=== PATIENT | female | born 1990 ===

== ENCOUNTER 2023-02-20 22:21 | Emergency (ER) | payer MEDICAID, SELFPAY ==
--- NOTE | ~2023-02-20 | CT_ITS ---
EXAMINATION: CT HEAD WITHOUT CONTRAST CLINICAL INFORMATION: Headache and dizziness. COMPARISON: None available. TECHNIQUE: Contiguous axial imaging was performed from the skull base to vertex without intravenous administration of contrast. This CT examination was performed using dose optimization techniques as appropriate, variously including the following: *Automated exposure control *Adjustment of mA and/or kV according to patient size (this includes techniques or standardized protocols for targeted exams where dose is matched to indication/reason for exam; i.e. extremities or head) *Use of iterative reconstruction technique DLP: 661 mGy-cm FINDINGS: There is no evidence of acute intracranial hemorrhage or territorial infarction. No abnormal mass effect or midline shift is seen. Herrera to white matter differentiation is well preserved. No extra-axial fluid collections are identified. No hydrocephalus. No significant volume loss. There is no abnormal attenuation within the brain parenchyma. No acute osseous or soft tissue abnormality. Scattered secretions throughout the ethmoid air cells. Mastoid air cells are clear. CT/CT head/brain wo IV con IMPRESSION: No acute intracranial pathology.
[2023-02-20 22:22] VITALS: BP 98/63; PULSE 67; RESP 18; TEMP 36.1; O2SAT 98; BMI 33.6
[2023-02-21] MEDS: Acetaminophen 325 MG TABLET 650 MG PO (00:13)
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
[2023-02-21 00:25] VITALS: BP 98/44; PULSE 61; RESP 14; TEMP 36.6; O2SAT 98
--- NOTE | 2023-02-21 00:59 | PC.NURSE ---
pt provided with discharge packet pt verbalized understanding of discharge plan pt verbalized understanding of discharge plan.
== END 2023-02-21 01:02 | disposition home or self-care (01) ==
PROVIDERS: Emergency Provider Student in an Organized Health Care Education/Training Program
DX: S09.90XA Unspecified injury of head, initial encounter (principal); R51.9 Headache, unspecified; Y29.XXXA Contact with blunt object, undetermined intent, initial encounter; Y93.9 Activity, unspecified; Y92.512 Supermarket, store or market as the place of occurrence of the external cause; Y99.9 Unspecified external cause status
CPT/HCPCS: 70450; 99284

== ENCOUNTER 2023-06-15 12:09 | Emergency (ER) | payer MEDICAID, SELFPAY ==
[2023-06-15 12:23] VITALS: BP 151/96; PULSE 91; RESP 16; TEMP 36.9; O2SAT 100; BMI 32.8
--- NOTE | 2023-06-15 12:28 | ED.GENADULT ---
HPI - General Adult General Chief complaint: Skin/Abscess/Foreign Body Stated complaint: Cyst L foot Time Seen by Provider: 06/15/23 12:43 Source: patient and RN notes reviewed Mode of arrival: ambulatory Limitations: no limitations History of Present Illness HPI narrative: This is a 33-year-old female, with no known medical problems, who presents emergency department complaints of cyst on her left foot over the last 4-5 months. She states that she has had increased pain and swelling over the last several months. No fevers, chills, drainage, increased warmth redness. Denies any recent trauma or injury. Denies taking any medications at home to treat her current symptoms. She has not been seen by any medical providers for this in the past. No other complaints or concerns at this time. MD complaint: Cyst left foot Onset (ago): month(s) Radiation: non-radiation Relieving factors: none Exacerbating factors: none Associated symptoms: denies other symptoms Treatments prior to arrival: none Related Data Allergies Allergy/AdvReac Type Severity Reaction Status Date / Time No Known Allergies Allergy Verified 06/15/23 12:29 [No Known Allergies*] Review of Systems Review of Systems: Yes all other systems are reviewed and are negative Constitutional: Constitutional: Reports as per [facility] Past Medical History Attestation statement: The following information was validated with the patient. Social History Social History Advance Directives: No Advance Directives Information Provided: No Physical Exam ED Vital Signs: Vital Signs - 24 hr 06/15/23 12:23 Temperature 98.4 F Pulse Rate 91 Respiratory Rate 16 Blood Pressure 151/96 H Pulse Oximetry 100 Oxygen Delivery Method Room Air BMI result Body Mass Index 32.8 Const General: cooperative, comfortable and no acute distress Orientation/consciousness: patient oriented x3 Limitations: no limitations HENMT Head: Yes normal to inspection, Yes normocephalic and Yes atraumatic Ears: hearing grossly normal bilaterally General nose exam: Normal external nose present Face and sinus: Yes normal facial exam Mouth: Normal oral and palatal mucosa present, oropharynx normal and moist mucous membranes Throat: Yes posterior oropharynx normal Eyes General: appearance normal, both eyes and all related structures Eyelids: Yes eyelids normal Conjunctivae: conjunctivae normal Sclerae: sclerae normal Pupils: Equal, round and reactive pupils present EOM: EOMs intact bilaterally Neck Neck: Yes normal visual inspection, Yes full ROM and Yes no lymphadenopathy Lymphatic: no lymphadenopathy noted Chest Chest palpation & inspection: normal inspection of the chest Resp Effort & Inspection: normal respiratory effort and able to speak in complete sentences Auscultation: clear to auscultation bilaterally, no crackles, no rales, no rhonchi and no wheezes Cardio Rate: regular rate Rhythm: regular rhythm Heart sounds: S1 normal heart sound present and S2 normal heart sound present GI Inspection: Yes normal to inspection Skin General skin exam: no rashes or lesions noted Trauma: no lacerations or abrasions Wounds: no wounds Neuro General: patient oriented x3 and moves all extremities Cranial nerves: Yes Equal, round and reactive pupils present Extrem Other: Left dorsum of the foot there is a 0.5 cm nodule mobile nontender cyst noted. No surrounding erythema, or overlying skin changes. General: Yes normal to inspection Right upper extremity: normal to inspection Left upper extremity: normal to inspection Right lower extremity: normal to inspection Left lower extremity: normal to inspection Course Course Course Narrative: This is an RME: Additional HPI, ROS, PE not included below will be deferred to primary provider. This is a 59-[id number]-female, with a hx of Medical Decision Making Medical Decision Making MDM Narrative: This is a 33-year-old female, with no known medical problems, who presents emergency department with complaints of left foot nodule. Patient states that she has had this for the last 4-5 months in would like it to be looked at. Differential diagnoses include cyst, abscess, contusion, abrasion, foreign body. Physical exam concerning for cyst. There has no evidence of infection therefore antibiotics not warranted at this time. Patient given referral to service unit operator for further workup and management. Given return precautions. She understands agrees with plan. Patient stable for discharge. Differential Diagnosis Differential Diagnoses: The differential diagnosis associated with the presentation includes See above Discharge Plan Discharge Clinical Impression: Skin lesion Patient Disposition: Home, Self-Care Instructions: Cyst (ED) Additional Instructions: You were seen in the emergency department due to a lump on your left foot. Please follow-up with dermatology as they will be able to further manage your symptoms You may take ibuprofen as needed for pain. If any new or worsening symptoms occur including but not limited to worsening swelling, redness, pain, chest pain, shortness of breath, please return for re-evaluation. [facility] [address] [place] [address] [id number], [place] [address] Stand Alone Forms: Work/School Release Discharge Date/Time: 06/15/23 12:55 Print Language: Czech
--- NOTE | 2023-06-15 12:55 | PC.NURSE ---
discharged from triage
== END 2023-06-15 12:55 | disposition home or self-care (01) ==
PROVIDERS: Emergency Provider Emergency Medicine Emergency Medical Services; PCP Pediatrics
DX: L08.9 Local infection of the skin and subcutaneous tissue, unspecified (principal)
CPT/HCPCS: 99281